=== PATIENT | female | born 1945 | race Caucasian/White ===

== ENCOUNTER 2017-09-23 07:55 | Outpatient (CLI) | payer MEDICARE, BC ==
[2017-09-23] MEDS ORDERED: Iopamidol 370 76% 100 ML VIAL ONE (10:04)
--- NOTE | 2017-09-23 10:45 | CT ---
CT ABDOMEN WITH AND WITHOUT IV CONTRAST: Date: 09/23/17 HISTORY: Epigastric pain. FINDINGS: The lung bases are clear. The liver, spleen, pancreas, adrenal glands, and right kidney are normal. T here are a few punctate calculi in the inferior pole of the left kidney. No hydroureteronephrosis is seen on either side. Left-sided parapelvic cysts are present. No calcified gallstones are noted. No free air, free fluid, or lymphadenopathy seen in the abdomen or pelvis. The small bowel loops are not abnormally dilated. There are vascular calcifications without evidence of aneurysmal dilatation of the abdominal aorta. Degenerative changes are present in the spi ne. IMPRESSION: 1. Punctate nonobstructing left renal calculi. 2. Left parapelvic renal cysts. POS: C
== END 2017-09-23 07:56 | disposition home or self-care (01) ==
LOC: CT 07:55
PROVIDERS: ATTEND Family Medicine
DX: R10.13 Epigastric pain (principal); N20.0 Calculus of kidney; Q61.02 Congenital multiple renal cysts
CPT/HCPCS: 74170

== ENCOUNTER 2018-05-05 08:50 | Outpatient (CLI) | payer MEDICARE, BC | END 2018-05-05 08:51 | disposition home or self-care (01) | LOC: BICMAMMO 08:50 | PROVIDERS: ATTEND Family Medicine | DX: Z12.31 Encounter for screening mammogram for malignant neoplasm of breast (principal) | CPT/HCPCS: 77063; 77067 ==

== ENCOUNTER 2018-10-13 05:08 | Outpatient (CLI) | payer MEDICARE, BC ==
[2018-10-13 13:42] LABS: #Basophils 0.1 thou/uL (0.0-0.2); #Eosinphils 0.4 thou/uL (0.0-0.7); #Lymphocytes 1.8 thou/uL (1.20-3.40); #Monocytes 0.8 thou/uL (0.11-0.59); #Neutrophils 6.9 thou/uL (1.40-6.50); %Basophils 0.8 % (0.0-1.0); %Eosinophils 4.3 % (0.0-10.0); %Lymphocytes 17.6 % (21.0-51.0); %Monocytes 8.3 % (0.0-10.0); %Neutrophils 68.9 % (42.0-75.0); Hemoglobin 13.4 g/dL (12.0-16.0); Mean Corpuscular HGB CONC 33.2 g/dL (32.0-36.0); Mean Corpuscular Hemoglobin 31.9 pg (27.0-31.0); Mean Corpuscular Volume 96.1 fL (78.0-98.0); Mean Platelet Volume 9.3 fL (7.4-10.4); Platelet Count 178 thou/uL (130-400); White Blood Cell (WBC) Count 9.9 thou/uL (4.8-10.8)
[2018-10-13 13:51] LABS: Prothrombin Time 13.2 SEC (12.0-14.7)
--- NOTE | 2018-10-13 13:57 | RAD ---
CHEST PA AND LATERAL: History: 73-year-old female for per operative evaluation. FINDINGS: Heart size is within normal limits. The lungs are clear. Mild biapical pleural thickening. No conflue nt pneumonia, overt edema, pleural effusion. IMPRESSION: No acute intrathoracic disease. POS: [facility]
[2018-10-13 14:07] LABS: Bilirubin Negative (Negative); Blood, Urine Negative (Negative); Clarity CLEAR (Clear); Glucose, Urine (Dipstick) Negative (Negative); Leukocyte Trace (Negative); Nitrite Negative (Negative); Protein, Urine (Dipstick) Negative (Neg-Trace); Specific Gravity, Urine 1.017 (1.002-1.036); Urobilinogen 0.2 mg/dL (0.2-1.0)
[2018-10-13 14:08] LABS: Anion Gap 11 mmol/L (10-20); BUN (Urea Nitrogen) 15 mg/dL (9.8-20.1); Calc. Creatinine Clearance 0 mL/min (70-130); Calcium 9.5 mg/dL (7.8-10.44); Carbon Dioxide 23 mmol/L (23-31); Chloride 108 mmol/L (98-107); Estimated GFR-MDRD 80; Glucose 105 mg/dL (83-110); Sodium 138 mmol/L (136-145)
[2018-10-13 14:09] LABS: Bacteria/HPF None Seen HPF (None Seen); Hyaline Casts/LPF 0-3 HYALINE CAST LPF (0-3 Hyaline); Pathc Cast-AUWi Flag 0.29 (0-2.49); RBC/HPF 0-3 HPF (0-3); Squamous Epithelial 0-3 HPF (0-3); WBC/HPF 0-3 HPF (0-3)
== END 2018-10-13 05:09 | disposition home or self-care (01) ==
LOC: LABBT 05:08
PROVIDERS: ATTEND Orthopaedic Surgery
DX: Z01.818 Encounter for other preprocedural examination (principal); M17.11 Unilateral primary osteoarthritis, right knee
CPT/HCPCS: 71046; 80048; 81001; 85025; 85610; 87081; 93005; 93010

== ENCOUNTER 2018-10-13 08:30 | Inpatient (IN) | payer MEDICARE, BC ==
[2018-10-25] MEDS ORDERED: Promethazine HCl 25 MG/ML VIAL IM PRN ×3 (06:55→10:07)
[2018-10-25] MEDS ORDERED: diphenhydrAMINE 25 MG CAP PO PRN (06:55)
[2018-10-25] MEDS ORDERED: traMADol HCl 50 MG TAB PO PRN ×3 (06:55→08:03)
[2018-10-25] MEDS ORDERED: Acetaminophen 325 MG TAB PO PRN (06:55)
[2018-10-25] MEDS ORDERED: Fentanyl 100 MCG/2 ML VIAL SLOW IVP PRN ×2 (06:55→08:04)
[2018-10-25] MEDS ORDERED: Zolpidem Tartrate 5 MG TAB PO PRN ×2 (06:55→08:03)
[2018-10-25] MEDS ORDERED: HYDROcodone/Acetaminophen 10/325 mg Tablet PO PRN ×3 (06:55→08:03)
[2018-10-25] MEDS ORDERED: Ondansetron PF 4 MG/2 ML Vial IVP PRN ×2 (06:55→08:03)
[2018-10-25] MEDS ORDERED: Vancomycin HCl 1.5 GM in Sodium Chloride 0.9% 250 ML 300 ML IVPB SCH (07:45)
[2018-10-25] MEDS ORDERED: Midazolam HCl 2 mg/2 ml Vial ONE (07:49)
[2018-10-25] MEDS ORDERED: Fentanyl 100 MCG/2 ML VIAL ONE ×4 (07:50→11:32)
[2018-10-25] MEDS ORDERED: Lidocaine 1% (PF) 30 ML VIAL ONE (07:50)
[2018-10-25] MEDS ORDERED: Sodium Chloride 0.9% 100 ML ONE (07:55)
[2018-10-25] MEDS ORDERED: CEFAZOLIN 2 GM/50 ML BAG ONE (07:55)
[2018-10-25] MEDS ORDERED: Tranexamic Acid 1,000 MG/10 ML VIAL ONE (07:55)
[2018-10-25] MEDS ORDERED: CEFAZOLIN 2 GM/50 ML-DEXTROSE 2 GM in Premix Bag 1 BAG IVPB SCH (08:00)
[2018-10-25] MEDS ORDERED: Ketorolac Tromethamine 30 MG/ML VIAL IVP PRN (08:03)
[2018-10-25] MEDS ORDERED: Ropivacaine HCl/PF 250 ML in Premix Bag 1 BAG NERVE BLCK SCH (08:03)
[2018-10-25] MEDS ORDERED: Levofloxacin 500 mg/D5W 100 ml Premix Bag ONE (08:26)
[2018-10-25] MEDS ORDERED: Aspirin 81 mg Enteric Coated Tablet PO SCH (09:00)
[2018-10-25] MEDS ORDERED: Ondansetron HCl/PF 4 MG/2 ML Vial IVP PRN (10:07)
[2018-10-25] MEDS ORDERED: Promethazine HCl 25 MG/ML VIAL SLOW IVP PRN (10:07)
[2018-10-25] MEDS ORDERED: Bupivacaine 0.25% HCL 30 ML VIAL ONE (10:14)
[2018-10-25] MEDS ORDERED: Ropivacaine 0.5% HCl/PF (150 MG/30 ML VIAL) ONE (10:14)
[2018-10-25] MEDS ORDERED: Ketorolac Tromethamine 30 MG/ML VIAL ONE (10:50)
[2018-10-25] MEDS ORDERED: Glycopyrrolate 0.2 MG/ML 5 ML SYRINGE ONE (10:52)
[2018-10-25] MEDS ORDERED: Dexamethasone 20 MG/5 ML VIAL ONE (10:52)
[2018-10-25] MEDS ORDERED: PROPOFOL 200 MG/20 ML VIAL ONE (10:52)
[2018-10-25] MEDS ORDERED: ePHEDrine/0.9% NaCl/PF SYRINGE 50 mg/10 ml ONE (10:52)
[2018-10-25] MEDS ORDERED: Ondansetron PF 4 MG/2 ML Vial ONE (10:52)
[2018-10-25] MEDS ORDERED: PHENYLEPHRINE-NS 100 MCG/ML 10 ML SYRINGE ONE (10:52)
--- NOTE | 2018-10-25 13:12 | OP ---
DATE OF PROCEDURE: 10/25/2018 PREOPERATIVE DIAGNOSIS: Degenerative joint disease, right knee. POSTOPERATIVE DIAGNOSIS: Degenerative joint disease, right knee. HOTEL STAFF MEMBER: Lawrence Joya PA-C. BLOOD LOSS: Minimal. SPECIMEN: None. DRAINS: None. COMPLICATION: None. TOURNIQUET TIME: 46 minutes. IMPLANTS USED: Kenny triathlon 4 femur, 3 tibia, 9 mm CS X3 polyethylene, and a 29 patella. PROCEDURE IN DETAIL: After informed consent was obtained in the preoperative holding area, the patient was taken to the operative suite where general anesthesia was induced. Once adequate level of general anesthesia was obtained, the patient was positioned and a well-padded tourniquet was placed around the right proximal thigh. The right lower extremity was then prepped and draped in the usual sterile fashion. Prior to exsanguination, a time-out was called and all members of the surgical team agreed upon site, surgeon, and patient. The extremity was then exsanguinated and the tourniquet was raised. A midline longitudinal incision was then made directly over the patella extending 2 fingerbreadths above the superior pole of the patella and 2 fingerbreadths inferior to the inferior patellar pole of the patella. Deeper subcutaneous layers were dissected sharply and local bleeding was controlled with Bovie electrocautery. A quad tendon longitudinal split was then made sharply and a median parapatellar arthrotomy was carried out both sharp and with Bovie electrocautery, carried down to 1 fingerbreadth medial to the tibial tubercle. The knee was then placed into flexion and the patella was everted nicely, and a copious fat pad ectomy was performed allowing for greater exposure of the tibia. The computer-assisted distal femoral fiducial was then placed and pinned firmly, and the distal femoral cutting guide was pinned firmly into place. The oscillating saw was then used to remove the appropriate amount of bone. The 4-in-1 cutting block was then placed on the distal femur and the oscillating saw was used to remove the appropriate amount of bone off the anterior, posterior, and chamfer cuts. After completion of bone cuts, the anterior cruciate ligament was resected sharply and the posterior cruciate ligament retractor was placed and the tibia was subluxed for better exposure. Partial meniscectomies were carried out, and the tibial computer-assisted fiducial was pinned, and the cutting guide was placed. Oscillating saw was then used to remove the bone, with Hohmann retractors used to take care and protect the collateral ligaments. After the tibial resection was performed, a laminar make ready worker was placed in between the freshened bone cuts. The knee placed at 90 degrees and further bilateral meniscectomies were carried out, and the curved osteotome and curettage were used to remove any excess bone spurs in the posterior compartment. The trial femoral component, tibial baseplate were placed with the appropriate polyethylene trial insert with an appropriate polyethylene spacer and patellar button. The knee was taken through full range of motion with flexion and extension from 0 to 90 degrees and patellar broach squarely in the trochlea without any squinting or subluxation noted. The knee was also stable to varus and valgus stressing at 0, 15, 45, and 90 degrees of flexion. The drawer was negative. All trial components were then removed and the keel punch was used to provide the appropriate defect in the tibia with a mallet. The freshened bone cuts were copiously irrigated with pulsatile lavage of about 1.5 L to remove all excess debris. The freshened bone cuts were then dried with suction and lap sponge. The knee was placed in flexion and retractors were placed to provide access to all bone cuts. Tobramycin-impregnated methyl methacrylate cement was then placed on the freshened bone cuts and implants which were malleted firmly into place. Curettage and [place] elevators were used to remove any excess bone cement. The knee was placed into full extension and the patellar button was placed under compression, and the cement was allowed to cure. Once completed, the components were again taken through full range of motion and copious irrigation of the knee was carried out with another liter of normal saline. All components were inspected fully with full range of motion and varus and valgus stressing. There was no laxity noted and full extension was observed clinically. Primary closure was accomplished with #2 interrupted Vicryl stitch of the arthrotomy defect. This was oversewn with a #2 running Quill barbed stitch. The gravitational platelet system was then injected into the arthrotomy prior to closure. The subcutaneous layer was then closed with a running 0 barbed Monocryl stitch and skin closure accomplished with a running subcuticular 3-0 Monocryl barbed Quill stitch and augmented with cement on the skin. Tourniquet was lowered. Good spontaneous return of distal pulses was noted clinically and a sterile dressing was applied to the incision. The procedure was terminated without any complications. The patient was awakened in the operative suite, and the patient was taken to the recovery room in stable condition. Job ID: [id number]
[2018-10-25 13:44] VITALS: BMI 32.4
--- NOTE | 2018-10-25 13:45 | RAD ---
RIGHT KNEE 2 VIEWS: Date: 10/25/18 HISTORY: Postop total knee. COMPARISON: Knee MRI from 2017. FINDINGS: Satisfactory postoperative appearance right total knee arthroplasty with patellar resurfacing. Expect ed postoperative gas and edema. IMPRESSION: Satisfactory postoperative appearance. POS: [facility]
[2018-10-25] MEDS ORDERED: Ketorolac Tromethamine 30 MG/ML VIAL IVP SCH (14:00)
[2018-10-25] MEDS: Sodium Chloride 0.9% 1,000 ML IV SCH ×3 (14:28→21:04)
[2018-10-25] MEDS: Calcium Carbonate 500 MG TAB PO SCH (14:34)
[2018-10-25] MEDS: Famotidine 20 MG TAB PO SCH (14:34)
[2018-10-25] MEDS: Ascorbic Acid 500 mg Chewable Tablet PO SCH (14:34)
[2018-10-25] MEDS: Aspirin 81 mg Enteric Coated Tablet PO SCH ×2 (14:34→21:06)
[2018-10-25] MEDS: HYDROcodone/Acetaminophen 10/325 mg Tablet PO PRN ×2 (14:49→21:05)
[2018-10-25] MEDS ORDERED: Cepastat Lozenges 1 LOZ PO PRN (15:04)
[2018-10-25] MEDS ORDERED: Eucerin (Mineral Oil/Petrolatum,White) 30 gm Jar TOP PRN (15:04)
[2018-10-25] MEDS ORDERED: Artificial Tear Sol 15 ML BOT EA EYE PRN (15:04)
[2018-10-25] MEDS ORDERED: hydrALAZINE 20 MG/ML VIAL SLOW IVP PRN (15:04)
[2018-10-25] MEDS ORDERED: Diabetic Tussin 200 MG/10 ML UDCUP PO PRN (15:04)
[2018-10-25] MEDS ORDERED: Loperamide HCl 2 MG CAP PO PRN (15:04)
[2018-10-25] MEDS ORDERED: Sodium Chloride 0.65% Nasal 44 ML BOT EA NARE PRN (15:04)
--- NOTE | 2018-10-25 15:28 | PDOC.PN ---
- Subjective Encounter Start Date: 10/25/18 Encounter Start Time: 14:30 -: old records requested/rev Patient seen and examined. No new complaints. pt had right total knee replacement consulted for medical management her pain is controlled - Objective Resuscitation Status - Order Detail: 10/25/18 15:04 Resuscitation Status Routine Resuscitation Status: FULL: Full Resuscitation MAR Reviewed: Yes Vital Signs & Weight: Vital Signs (12 hours) Temp Pulse Resp BP Pulse Ox 10/25/18 13:00 97.6 F 58 L 18 134/70 95 Weight Weight 195 lb Additional Labs: old medical record reviewed Radiology Reviewed by me: Yes (knee xray reviewed) Phys Exam - Physical Examination Constitutional: NAD HEENT: PERRLA, moist MMs, sclera anicteric Neck: no JVD, supple Respiratory: no wheezing, no rales, no rhonchi Cardiovascular: RRR, no significant murmur, no rub Gastrointestinal: soft, non-tender, no distention, positive bowel sounds Musculoskeletal: no edema, pulses present right knee with dressing, nerve block in place, brothers+ Neurological: non-focal, normal sensation, moves all 4 limbs Lymphatic: no nodes Psychiatric: normal affect, A&O x 3 Skin: no rash, normal turgor Dx/Plan (1) Status post total right knee replacement Code(s): Z96.651 - PRESENCE OF RIGHT ARTIFICIAL KNEE JOINT Status: Acute (2) GERD (gastroesophageal reflux disease) Code(s): K21.9 - GASTRO-ESOPHAGEAL REFLUX DISEASE WITHOUT ESOPHAGITIS Status: Chronic (3) Hypertension Code(s): I10 - ESSENTIAL (PRIMARY) HYPERTENSION Status: Chronic (4) Obesity (BMI 30.0-34.9) Code(s): E66.9 - OBESITY, UNSPECIFIED Status: Chronic - Plan cont current plan of care, plan discussed w/ family, PT/OT * continue aspirin for DVT prophylaxis * nerve block as per anesthesia * PT/OT as per JU protocol treatment * home medication reconciled * medication reviewed as below * symptomatic treatment * code status addressed and she is full code * pain controlled * medically stable * discussed with family bedside * will follow. Review of Systems - Review of Systems ENT: negative: Ear Pain, Ear Discharge, Nose Pain, Nose Discharge, Nose Congestion, Mouth Pain, Mouth Swelling, Throat Pain, Throat Swelling, Other Respiratory: negative: Cough, Dry, Shortness of Breath, Hemoptysis, SOB with Excertion, Pleuritic Pain, Sputum, Wheezing Cardiovascular: negative: chest pain, palpitations, orthopnea, paroxysmal nocturnal dyspnea, edema, light headedness, other Gastrointestinal: negative: Nausea, Vomiting, Abdominal Pain, Diarrhea, Constipation, Melena, Hematochezia, Other Genitourinary: negative: Dysuria, Frequency, Incontinence, Hematuria, Retention , Other Musculoskeletal: negative: Neck Pain, Shoulder Pain, Arm Pain, Back Pain, Hand Pain, Leg Pain, Foot Pain, Other Skin: negative: Rash, Lesions, Monico, Bruising, Other - Medications/Allergies Allergies/Adverse Reactions: Allergies Allergy/AdvReac Type Severity Reaction Status Date / Time cephalexin [From Keflex] Allergy extreme Verified 10/13/18 09:42 nausea codeine Allergy Nausea Verified 10/13/18 09:42 latex Allergy blisters Verified 10/13/18 09:42 Medications: Current Medications Acetaminophen (Tylenol) 650 mg PO Q4H PRN PRN Reason: Headache/Fever or Pain Hydrocodone Bitart/Acetaminophen ([place] 10/325) 1 tab PO Q4H PRN PRN Reason: Pain (1-3) Hydrocodone Bitart/Acetaminophen ([place] 10/325) 2 tab PO Q4H PRN PRN Reason: PAIN (4-6) Last Admin: 10/25/18 14:49 Dose: 2 tab Artificial Tears (Tears Renewed 15ml Bottle) 2 drop EA EYE PRN PRN PRN Reason: Dry Eyes Ascorbic Acid (Vitamin C) 1,000 mg PO DAILY [facility] Last Admin: 10/25/18 14:34 Dose: Not Given Aspirin (Ecotrin) 81 mg PO BID [facility] Last Admin: 10/25/18 14:34 Dose: Not Given Calcium Carbonate (Oscal-500) 500 mg PO DAILY [facility] Last Admin: 10/25/18 14:34 Dose: Not Given Diphenhydramine HCl (Benadryl) 25 mg PO Q6H PRN PRN Reason: Itching Famotidine (Pepcid) 20 mg PO QAM [facility] Last Admin: 10/25/18 14:34 Dose: Not Given Fentanyl (Sublimaze) 50 mcg SLOW IVP Q1H PRN PRN Reason: breakthrough pain Ferrous Gluconate (Fergon) 324 mg PO BID-[facility] Guaifenesin (Robitussin Sf) 200 mg PO Q4H PRN PRN Reason: Cough Hydralazine HCl (Apresoline) 10 mg SLOW IVP Q4H PRN PRN Reason: SBP > 180 and HR < 70 Levofloxacin 500 mg/ Device 100 mls @ 100 mls/hr IVPB 0900 [facility] Stop: 10/26/18 09:59 Sodium Chloride (Normal Saline 0.9%) 1,000 mls @ 100 mls/hr IV .Q10H [facility] Last Admin: 10/25/18 14:28 Dose: Not Given Vancomycin HCl 1 gm/ Device 200 mls @ 200 mls/hr IVPB 2100 [facility] Stop: 10/25/18 21:59 Ropivacaine 250 ml/ Device 250 mls @ 10 mls/hr NERVE BLCK INF [facility] Iron/Minerals/Multivitamins (Theragran M) 1 tab PO DAILY [facility] Ketorolac Tromethamine (Toradol) 15 mg IVP Q6H PRN PRN Reason: Moderate Pain (4-6) Stop: 10/28/18 08:04 Loperamide HCl (Imodium) 2 mg PO PRN PRN PRN Reason: Diarrhea/Loose Stools Metoprolol Succinate (Toprol Xl) 50 mg PO QAM [facility] Last Admin: 10/25/18 14:45 Dose: Not Given Mineral Oil/White Petrolatum (Eucerin Cream) 0 gm TOP BIDPRN PRN PRN Reason: Dry Skin Ondansetron HCl (Zofran) 4 mg IVP Q6H PRN PRN Reason: Nausea/Vomiting Promethazine HCl (Phenergan) 12.5 mg IM Q4H PRN PRN Reason: Nausea Senna/Docusate Sodium (Senokot S) 2 tab PO BID [facility] Sodium Chloride (Flush - Normal Saline) 10 ml IVF PRN PRN PRN Reason: Saline Flush Sodium Chloride ([place] Nasal [place] 0.65%) 0 ml EA NARE QIDPRN PRN PRN Reason: Nasal Congestion Throat Lozenges (Cepastat Lozenges) 1 anni PO Q2H PRN PRN Reason: Sore Throat Tramadol HCl (Ultram) 50 mg PO Q6H PRN PRN Reason: Mild Pain (1-3) Tramadol HCl (Ultram) 100 mg PO Q6H PRN PRN Reason: Moderate Pain 4-6 Zolpidem Tartrate (Ambien) 5 mg PO HSPRN PRN PRN Reason: Insomnia
[2018-10-25] MEDS ORDERED: Vancomycin HCl 1 GM in Premix Bag 1 BAG IVPB SCH (21:00)
[2018-10-26] MEDS: HYDROcodone/Acetaminophen 10/325 mg Tablet PO PRN ×3 (04:44→18:23)
[2018-10-26 08:08] LABS: Hemoglobin 11.6 g/dL (12.0-16.0); Mean Corpuscular HGB CONC 32.6 g/dL (32.0-36.0); Mean Corpuscular Hemoglobin 31.4 pg (27.0-31.0); Mean Corpuscular Volume 96.4 fL (78.0-98.0); Mean Platelet Volume 8.9 fL (7.4-10.4); Platelet Count 208 thou/uL (130-400); RBC Distribution Width 12.3 % (11.5-14.5); Red Blood Cell (RBC) Count 3.68 mill/uL (4.20-5.40); White Blood Cell (WBC) Count 18.6 thou/uL (4.8-10.8)
[2018-10-26] MEDS: Ferrous Gluconate 324 MG TAB PO SCH ×2 (08:30→18:27)
[2018-10-26] MEDS: Aspirin 81 mg Enteric Coated Tablet PO SCH ×2 (08:44→20:10)
[2018-10-26] MEDS: Ascorbic Acid 500 mg Chewable Tablet PO SCH (08:44)
[2018-10-26] MEDS: Calcium Carbonate 500 MG TAB PO SCH (08:45)
[2018-10-26] MEDS: Senokot S 8.6-50 MG TAB PO SCH ×2 (08:45→20:10)
[2018-10-26] MEDS: Famotidine 20 MG TAB PO SCH (08:46)
[2018-10-26] MEDS: Multivitamin W/ Minerals 1 TAB PO SCH (08:46)
--- NOTE | 2018-10-26 10:51 | PDOC.PN ---
- Subjective Encounter Start Date: 10/26/18 Encounter Start Time: 08:20 Patient seen and examined. No new complaints. No overnight events - Objective Resuscitation Status - Order Detail: 10/25/18 15:04 Resuscitation Status Routine Resuscitation Status: FULL: Full Resuscitation MAR Reviewed: Yes Vital Signs & Weight: Vital Signs (12 hours) Temp Pulse Resp BP Pulse Ox 10/26/18 08:00 97.9 F 64 20 119/61 92 L 10/26/18 04:33 98.4 F 66 20 103/47 L 94 L 10/26/18 00:16 98.2 F 64 20 112/64 95 Weight Weight 195 lb I&O: 10/25/18 10/26/18 10/27/18 06:59 06:59 06:59 Intake Total 3755 Output Total 2700 Balance 1055 Result Diagrams: 10/26/18 07:34 Phys Exam - Physical Examination Constitutional: NAD HEENT: PERRLA, moist MMs, sclera anicteric Neck: no JVD, supple Respiratory: no wheezing, no rales, no rhonchi Cardiovascular: RRR, no significant murmur, no rub Gastrointestinal: soft, non-tender, no distention, positive bowel sounds Musculoskeletal: no edema, pulses present nerve block in place Neurological: non-focal, normal sensation, moves all 4 limbs Psychiatric: normal affect, A&O x 3 Skin: no rash, normal turgor Dx/Plan (1) Status post total right knee replacement Code(s): Z96.651 - PRESENCE OF RIGHT ARTIFICIAL KNEE JOINT Status: Acute (2) GERD (gastroesophageal reflux disease) Code(s): K21.9 - GASTRO-ESOPHAGEAL REFLUX DISEASE WITHOUT ESOPHAGITIS Status: Chronic (3) Hypertension Code(s): I10 - ESSENTIAL (PRIMARY) HYPERTENSION Status: Chronic (4) Obesity (BMI 30.0-34.9) Code(s): E66.9 - OBESITY, UNSPECIFIED Status: Chronic (5) Anemia, normocytic normochromic Code(s): D64.9 - ANEMIA, UNSPECIFIED Status: Chronic - Plan * continue aspirin for DVT prophylaxis * nerve block as per anesthesia * PT/OT as per [facility] protocol treatment * medication reviewed as below * symptomatic treatment * pain controlled * medically stable.. Review of Systems - Review of Systems ENT: negative: Ear Pain, Ear Discharge, Nose Pain, Nose Discharge, Nose Congestion, Mouth Pain, Mouth Swelling, Throat Pain, Throat Swelling, Other Respiratory: negative: Cough, Dry, Shortness of Breath, Hemoptysis, SOB with Excertion, Pleuritic Pain, Sputum, Wheezing Cardiovascular: negative: chest pain, palpitations, orthopnea, paroxysmal nocturnal dyspnea, edema, light headedness, other Gastrointestinal: negative: Nausea, Vomiting, Abdominal Pain, Diarrhea, Constipation, Melena, Hematochezia, Other Genitourinary: negative: Dysuria, Frequency, Incontinence, Hematuria, Retention , Other Musculoskeletal: negative: Neck Pain, Shoulder Pain, Arm Pain, Back Pain, Hand Pain, Leg Pain, Foot Pain, Other Skin: negative: Rash, Lesions, Monico, Bruising, Other - Medications/Allergies Allergies/Adverse Reactions: Allergies Allergy/AdvReac Type Severity Reaction Status Date / Time cephalexin [From Keflex] Allergy extreme Verified 10/13/18 09:42 nausea codeine Allergy Nausea Verified 10/13/18 09:42 latex Allergy blisters Verified 10/13/18 09:42 Medications: Current Medications Acetaminophen (Tylenol) 650 mg PO Q4H PRN PRN Reason: Headache/Fever or Pain Hydrocodone Bitart/Acetaminophen ([place] 10/325) 1 tab PO Q4H PRN PRN Reason: Pain (1-3) Hydrocodone Bitart/Acetaminophen ([place] 10/325) 2 tab PO Q4H PRN PRN Reason: PAIN (4-6) Last Admin: 10/26/18 08:43 Dose: 2 tab Artificial Tears (Tears Renewed 15ml Bottle) 2 drop EA EYE PRN PRN PRN Reason: Dry Eyes Ascorbic Acid (Vitamin C) 1,000 mg PO DAILY [facility] Last Admin: 10/26/18 08:44 Dose: 1,000 mg Aspirin (Ecotrin) 81 mg PO BID [facility] Last Admin: 10/26/18 08:44 Dose: 81 mg Calcium Carbonate (Oscal-500) 500 mg PO DAILY [facility] Last Admin: 10/26/18 08:45 Dose: 500 mg Diphenhydramine HCl (Benadryl) 25 mg PO Q6H PRN PRN Reason: Itching Famotidine (Pepcid) 20 mg PO QAM [facility] Last Admin: 10/26/18 08:46 Dose: 20 mg Fentanyl (Sublimaze) 50 mcg SLOW IVP Q1H PRN PRN Reason: breakthrough pain Ferrous Gluconate (Fergon) 324 mg PO BID-[facility] Last Admin: 10/26/18 08:30 Dose: 324 mg Guaifenesin (Robitussin Sf) 200 mg PO Q4H PRN PRN Reason: Cough Hydralazine HCl (Apresoline) 10 mg SLOW IVP Q4H PRN PRN Reason: SBP > 180 and HR < 70 Sodium Chloride (Normal Saline 0.9%) 1,000 mls @ 100 mls/hr IV .Q10H [facility] Last Admin: 10/25/18 21:04 Dose: 1,000 mls Ropivacaine 250 ml/ Device 250 mls @ 10 mls/hr NERVE BLCK INF [facility] Iron/Minerals/Multivitamins (Theragran M) 1 tab PO DAILY [facility] Last Admin: 10/26/18 08:46 Dose: 1 tab Ketorolac Tromethamine (Toradol) 15 mg IVP Q6H PRN PRN Reason: Moderate Pain (4-6) Stop: 10/28/18 08:04 Loperamide HCl (Imodium) 2 mg PO PRN PRN PRN Reason: Diarrhea/Loose Stools Metoprolol Succinate (Toprol Xl) [facility] [place] Last Admin: 10/26/18 08:45 Dose: 50 mg Mineral Oil/White Petrolatum (Eucerin Cream) 0 gm TOP BIDPRN PRN PRN Reason: Dry Skin Ondansetron HCl (Zofran) 4 mg IVP Q6H PRN PRN Reason: Nausea/Vomiting Last Admin: 10/26/18 10:44 Dose: 4 mg Promethazine HCl (Phenergan) 12.5 mg IM Q4H PRN PRN Reason: Nausea Senna/Docusate Sodium (Senokot S) 2 tab PO BID [facility] Last Admin: 10/26/18 08:45 Dose: 2 tab Sodium Chloride (Flush - Normal Saline) 10 ml IVF PRN PRN PRN Reason: Saline Flush Sodium Chloride ([place] Nasal [place] 0.65%) 0 ml EA NARE QIDPRN PRN PRN Reason: Nasal Congestion Throat Lozenges (Cepastat Lozenges) 1 anni PO Q2H PRN PRN Reason: Sore Throat Tramadol HCl (Ultram) 50 mg PO Q6H PRN PRN Reason: Mild Pain (1-3) Tramadol HCl (Ultram) 100 mg PO Q6H PRN PRN Reason: Moderate Pain 4-6 Zolpidem Tartrate (Ambien) 5 mg PO HSPRN PRN PRN Reason: Insomnia
[2018-10-26] MEDS: Sodium Chloride 0.9% 1,000 ML IV SCH ×2 (15:19→20:11)
[2018-10-27] MEDS: HYDROcodone/Acetaminophen 10/325 mg Tablet PO PRN ×4 (02:31→17:26)
[2018-10-27] MEDS: Famotidine 20 MG TAB PO SCH (06:37)
[2018-10-27 06:58] LABS: Hemoglobin 10.9 g/dL (12.0-16.0); Mean Corpuscular HGB CONC 32.2 g/dL (32.0-36.0); Mean Corpuscular Hemoglobin 31.5 pg (27.0-31.0); Mean Corpuscular Volume 97.6 fL (78.0-98.0); Mean Platelet Volume 9.2 fL (7.4-10.4); Platelet Count 194 thou/uL (130-400); RBC Distribution Width 12.6 % (11.5-14.5); Red Blood Cell (RBC) Count 3.46 mill/uL (4.20-5.40); White Blood Cell (WBC) Count 15.4 thou/uL (4.8-10.8)
[2018-10-27] MEDS: Ascorbic Acid 500 mg Chewable Tablet PO SCH (08:43)
[2018-10-27] MEDS: Ferrous Gluconate 324 MG TAB PO SCH ×2 (08:43→16:16)
[2018-10-27] MEDS: Senokot S 8.6-50 MG TAB PO SCH (08:44)
[2018-10-27] MEDS: Calcium Carbonate 500 MG TAB PO SCH (08:44)
[2018-10-27] MEDS: Aspirin 81 mg Enteric Coated Tablet PO SCH (08:44)
[2018-10-27] MEDS: Multivitamin W/ Minerals 1 TAB PO SCH (08:44)
[2018-10-27] MEDS ORDERED: Ondansetron ODT 4 MG TAB PO PRN (09:16)
[2018-10-27] MEDS: Sodium Chloride 0.9% 1,000 ML IV SCH (09:16)
--- NOTE | 2018-10-27 09:45 | PDOC.PN ---
- Subjective Encounter Start Date: 10/27/18 Encounter Start Time: 08:10 Patient seen and examined. No new complaints. No overnight events - Objective Resuscitation Status - Order Detail: 10/25/18 15:04 Resuscitation Status Routine Resuscitation Status: FULL: Full Resuscitation MAR Reviewed: Yes Vital Signs & Weight: Vital Signs (12 hours) Temp Pulse Resp BP Pulse Ox 10/27/18 08:00 94 L 10/27/18 07:46 97.8 F 58 L 17 124/52 L 94 L 10/27/18 05:48 98.6 F 64 18 123/66 92 L 10/27/18 01:09 98.4 F 65 18 113/53 L 94 L Weight Weight 195 lb I&O: 10/26/18 10/27/18 10/28/18 06:59 06:59 06:59 Intake Total 3755 2160 Output Total 2700 2000 Balance 1055 160 Result Diagrams: 10/27/18 06:30 Phys Exam - Physical Examination Constitutional: NAD HEENT: PERRLA, moist MMs, sclera anicteric Neck: no JVD, supple Respiratory: no wheezing, no rales, no rhonchi Cardiovascular: RRR, no significant murmur, no rub Gastrointestinal: soft, non-tender, no distention, positive bowel sounds Musculoskeletal: no edema, pulses present Neurological: non-focal, normal sensation Lymphatic: no nodes Psychiatric: normal affect Skin: no rash, normal turgor Dx/Plan (1) Status post total right knee replacement Code(s): Z96.651 - PRESENCE OF RIGHT ARTIFICIAL KNEE JOINT Status: Acute (2) GERD (gastroesophageal reflux disease) Code(s): K21.9 - GASTRO-ESOPHAGEAL REFLUX DISEASE WITHOUT ESOPHAGITIS Status: Chronic (3) Hypertension Code(s): I10 - ESSENTIAL (PRIMARY) HYPERTENSION Status: Chronic (4) Obesity (BMI 30.0-34.9) Code(s): E66.9 - OBESITY, UNSPECIFIED Status: Chronic - Plan cont current plan of care, PT/OT * medication reviewed as below * symptomatic treatment * medically stable * may need placement. Review of Systems - Review of Systems ENT: negative: Ear Pain, Ear Discharge, Nose Pain, Nose Discharge, Nose Congestion, Mouth Pain, Mouth Swelling, Throat Pain, Throat Swelling, Other Respiratory: negative: Cough, Dry, Shortness of Breath, Hemoptysis, SOB with Excertion, Pleuritic Pain, Sputum, Wheezing Cardiovascular: negative: chest pain, palpitations, orthopnea, paroxysmal nocturnal dyspnea, edema, light headedness, other Gastrointestinal: negative: Nausea, Vomiting, Abdominal Pain, Diarrhea, Constipation, Melena, Hematochezia, Other Genitourinary: negative: Dysuria, Frequency, Incontinence, Hematuria, Retention , Other Musculoskeletal: negative: Neck Pain, Shoulder Pain, Arm Pain, Back Pain, Hand Pain, Leg Pain, Foot Pain, Other Skin: negative: Rash, Lesions, Monico, Bruising, Other - Medications/Allergies Allergies/Adverse Reactions: Allergies Allergy/AdvReac Type Severity Reaction Status Date / Time cephalexin [From Keflex] Allergy extreme Verified 10/13/18 09:42 nausea codeine Allergy Nausea Verified 10/13/18 09:42 latex Allergy blisters Verified 10/13/18 09:42 Medications: Current Medications Acetaminophen (Tylenol) 650 mg PO Q4H PRN PRN Reason: Headache/Fever or Pain Hydrocodone Bitart/Acetaminophen ([place] 10/325) 1 tab PO Q4H PRN PRN Reason: Pain (1-3) Hydrocodone Bitart/Acetaminophen ([place] 10/325) 2 tab PO Q4H PRN PRN Reason: PAIN (4-6) Last Admin: 10/27/18 06:32 Dose: 2 tab Artificial Tears (Tears Renewed 15ml Bottle) 2 drop EA EYE PRN PRN PRN Reason: Dry Eyes Ascorbic Acid (Vitamin C) 1,000 mg PO DAILY [facility] Last Admin: 10/27/18 08:43 Dose: 1,000 mg Aspirin (Ecotrin) 81 mg PO BID [facility] Last Admin: 10/27/18 08:44 Dose: 81 mg Calcium Carbonate (Oscal-500) 500 mg PO DAILY [facility] Last Admin: 10/27/18 08:44 Dose: 500 mg Diphenhydramine HCl (Benadryl) 25 mg PO Q6H PRN PRN Reason: Itching Famotidine (Pepcid) 20 mg PO QAM [facility] Last Admin: 10/27/18 06:37 Dose: 20 mg Fentanyl (Sublimaze) 50 mcg SLOW IVP Q1H PRN PRN Reason: breakthrough pain Ferrous Gluconate (Fergon) 324 mg PO BID-[facility] Last Admin: 10/27/18 08:43 Dose: Not Given Guaifenesin (Robitussin Sf) 200 mg PO Q4H PRN PRN Reason: Cough Hydralazine HCl (Apresoline) 10 mg SLOW IVP Q4H PRN PRN Reason: SBP > 180 and HR < 70 Sodium Chloride (Normal Saline 0.9%) 1,000 mls @ 100 mls/hr IV .Q10H [facility] Last Admin: 10/27/18 09:16 Dose: Not Given Ropivacaine 250 ml/ Device 250 mls @ 10 mls/hr NERVE BLCK INF [facility] Last Admin: 10/26/18 14:14 Dose: 250 mls Iron/Minerals/Multivitamins (Theragran M) 1 tab PO DAILY [facility] Last Admin: 10/27/18 08:44 Dose: 1 tab Ketorolac Tromethamine (Toradol) 15 mg IVP Q6H PRN PRN Reason: Moderate Pain (4-6) Stop: 10/28/18 08:04 Last Admin: 10/26/18 11:45 Dose: 15 mg Loperamide HCl (Imodium) 2 mg PO PRN PRN PRN Reason: Diarrhea/Loose Stools Metoprolol Succinate (Toprol Xl) 50 mg PO QAM [facility] Last Admin: 10/27/18 08:44 Dose: 50 mg Mineral Oil/White Petrolatum (Eucerin Cream) 0 gm TOP BIDPRN PRN PRN Reason: Dry Skin Ondansetron HCl (Zofran) 4 mg IVP Q6H PRN PRN Reason: Nausea/Vomiting Last Admin: 10/26/18 10:44 Dose: 4 mg Ondansetron HCl (Zofran Odt) 4 mg PO Q6H PRN PRN Reason: Nausea/Vomiting Promethazine HCl (Phenergan) 12.5 mg IM Q4H PRN PRN Reason: Nausea Senna/Docusate Sodium (Senokot S) 2 tab PO BID [facility] Last Admin: 10/27/18 08:44 Dose: 2 tab Sodium Chloride (Flush - Normal Saline) 10 ml IVF PRN PRN PRN Reason: Saline Flush Sodium Chloride ([place] Nasal [place] 0.65%) 0 ml EA NARE QIDPRN PRN PRN Reason: Nasal Congestion Throat Lozenges (Cepastat Lozenges) 1 anni PO Q2H PRN PRN Reason: Sore Throat Tramadol HCl (Ultram) 50 mg PO Q6H PRN PRN Reason: Mild Pain (1-3) Tramadol HCl (Ultram) 100 mg PO Q6H PRN PRN Reason: Moderate Pain 4-6 Zolpidem Tartrate (Ambien) 5 mg PO HSPRN PRN PRN Reason: Insomnia
[2018-10-27 15:30] VITALS: TEMP 97.9
[2018-10-27 15:31] VITALS: BP 135/71
[2018-10-27] MEDS ORDERED: Bisacodyl 10 MG SUPP PR PRN (15:40)
[2018-10-27] MEDS ORDERED: Bisacodyl 5 MG TAB PO SCH (15:45)
[2018-10-27] MEDS ORDERED: Mag-Al 1200 mg/1200 mg/30 ML UDCUP PO SCH (15:45)
--- NOTE | 2018-10-28 10:07 | DIS ---
DATE OF ADMISSION: 10/25/2018 DATE OF DISCHARGE: 10/27/2018 PRIMARY CARE PHYSICIAN: Kyara Joseph MD. DISCHARGE DISPOSITION: Rehab. PRIMARY DISCHARGE DIAGNOSES: Status post right total knee replacement. SECONDARY DISCHARGE DIAGNOSES: 1. Anemia, normocytic. 2. Gastroesophageal reflux disease. 3. Hypertension. 4. Obesity with BMI of 32. PRIMARY PROCEDURE/OPERATION: Right total knee replacement. RADIOLOGICAL INVESTIGATION: Knee x-ray. SIGNIFICANT LABORATORY DATA: WBC 15.4, hemoglobin 10.9, and platelet 194. DISCHARGE MEDICATIONS: 1. Aspirin 81 mg p.o. daily. 2. Pepcid 20 mg daily. 3. Toprol-XL 50 mg p.o. daily. 4. Vitamin C 1000 mg p.o. daily. CONTRAINDICATION: None. CODE STATUS: Full code. INPATIENT SENIOR BUSINESS INTELLIGENCE ANALYST: Dr. Craft was primary, [facility] Team was consulted for medical management. TEST RESULTS PENDING ON DISCHARGE: None. ALLERGIES: KEFLEX, CODEINE, AND LATEX. DISCHARGE PLAN: Posthospital, the patient is discharged to rehab. Subsequently, the patient will follow up with Dr. Craft on November 16, 2018 at 8:45 a.m. The patient will make appointment with primary care physician in one week. HOSPITAL COURSE: A 73-year-old female, who was admitted electively for right total knee replacement, which was done by Dr. Craft and subsequently a [facility] [place] Team was consulted for medical comanagement. The patient's all medical problems remained stable. We continued all her home medication. This patient was needing rehab and with help of bottle caser, we arranged rehab. At rehab, the patient will need DVT prophylaxis and PT and OT as per protocol and she will follow up with primary care physician after discharge from rehab. The patient is seen and examined on the day of discharge. Please see my progress note for further detail. Job ID: [id number]
== END 2018-10-27 17:42 | disposition home or self-care (01) | DRG 470 ==
LOC: SURG A 10-25 06:35 → EDSTATUS 10-25 08:30 → SJJU 10-25 13:11
PROVIDERS: ADMIT Orthopaedic Surgery; ATTEND Orthopaedic Surgery
PROC: 0SRC0J9 Replacement of Right Knee Joint with Synthetic Substitute, Cemented, Open Approach (ICD-10-PCS; principal; 2018-10-25)
DX: M17.11 Unilateral primary osteoarthritis, right knee (principal); K21.9 Gastro-esophageal reflux disease without esophagitis; I10 Essential (primary) hypertension; E66.9 Obesity, unspecified; D64.9 Anemia, unspecified; Z68.30 Body mass index [BMI] 30.0-30.9, adult; Z88.1 Allergy status to other antibiotic agents; Z88.5 Allergy status to narcotic agent; Z91.040 Latex allergy status
CPT/HCPCS: 36415; 85027; C1713; C1776; J0131; J1100; J1885; J1956; J2001; J2250; J2405; J2550; J2704; J2795; J3010; J3370; J7050; Q0162; S0020

== ENCOUNTER 2018-10-21 10:44 | Outpatient (CLI) | payer MEDICARE, BC | END 2018-10-21 10:45 | disposition home or self-care (01) | LOC: LABBT 10:44 | PROVIDERS: ATTEND Orthopaedic Surgery | DX: Z01.812 Encounter for preprocedural laboratory examination (principal); M17.11 Unilateral primary osteoarthritis, right knee | CPT/HCPCS: 86850; 86900; 86901 ==

== ENCOUNTER 2019-11-22 10:55 | Outpatient (CLI) | payer MEDICARE, BC ==
--- NOTE | 2019-11-22 11:24 | MMO ---
Bilateral MAMMO Bilat Screen [facility]. CLINICAL HISTORY: Patient is 74 years old and is seen for screening. The patient has no family history of breast cancer. The patient has no personal history of cancer. VIEWS: The views performed were: bilateral craniocaudal with tomosynthesis and bilateral mediolateral oblique with tomosynthesis. FILMS COMPARED: The present examination has been compared to prior imaging studies performed at [facility] on 07/12/2009, 11/20/2016 and 05/05/2018, and at [facility] on 08/31/2002. This study has been interpreted with the assistance of computer-aided detection. MAMMOGRAM FINDINGS: There are scattered fibroglandular densities. There are no suspicious masses, suspicious calcifications, or new areas of architectural distortion. IMPRESSION: THERE IS NO MAMMOGRAPHIC EVIDENCE OF MALIGNANCY. A ROUTINE FOLLOW-UP MAMMOGRAM IN 1 YEAR IS RECOMMENDED. THE RESULTS OF THIS EXAM WERE SENT TO THE PATIENT. ACR BI-RADS Category 1 - Negative MAMMOGRAPHY NOTE: 1. A negative mammogram report should not delay a biopsy if a dominant of clinically suspicious mass is present. 2. Approximately 10% to 15% of breast cancers are not detected by mammography. 3. Adenosis and dense breasts may obscure an underlying neoplasm. Reported by: JUAN CARLOS JUAREZ MD Electonically Signed: [id number]
== END 2019-11-22 10:56 | disposition home or self-care (01) ==
LOC: BICMAMMO 10:55
PROVIDERS: ATTEND Family Medicine
DX: Z12.31 Encounter for screening mammogram for malignant neoplasm of breast (principal)
CPT/HCPCS: 77063; 77067

== ENCOUNTER 2020-11-25 09:57 | Outpatient (CLI) | payer MEDICARE, BC ==
--- NOTE | 2020-11-25 10:42 | MMO ---
Bilateral MAMMO Bilat Screen [facility]. CLINICAL HISTORY: Patient is 75 years old and is seen for screening. The patient has no family history of breast cancer. The patient has no personal history of cancer. VIEWS: The views performed were: bilateral craniocaudal with tomosynthesis and bilateral mediolateral oblique with tomosynthesis. FILMS COMPARED: The present examination has been compared to prior imaging studies performed at [facility] on 07/12/2009, 11/20/2016, 05/05/2018 and 11/22/2019. This study has been interpreted with the assistance of computer-aided detection. MAMMOGRAM FINDINGS: There are scattered fibroglandular densities. There are no suspicious masses, suspicious calcifications, or new areas of architectural distortion. IMPRESSION: THERE IS NO MAMMOGRAPHIC EVIDENCE OF MALIGNANCY. A ROUTINE FOLLOW-UP MAMMOGRAM IN 1 YEAR IS RECOMMENDED. THE RESULTS OF THIS EXAM WERE SENT TO THE PATIENT. ACR BI-RADS Category 1 - Negative MAMMOGRAPHY NOTE: 1. A negative mammogram report should not delay a biopsy if a dominant of clinically suspicious mass is present. 2. Approximately 10% to 15% of breast cancers are not detected by mammography. 3. Adenosis and dense breasts may obscure an underlying neoplasm. Reported by: JUAN CARLOS JUAREZ MD Electonically Signed: [id number]
== END 2020-11-25 09:58 | disposition home or self-care (01) ==
LOC: BICMAMMO 09:57
PROVIDERS: ATTEND Family Medicine
DX: Z12.31 Encounter for screening mammogram for malignant neoplasm of breast (principal)
CPT/HCPCS: 77063; 77067

== ENCOUNTER 2021-01-15 09:47 | Emergency (ER) | payer MEDICARE, BC ==
[2021-01-15] MEDS ORDERED: Morphine 4 MG/ML VIAL ONE ×2 (11:01→15:15)
[2021-01-15] MEDS ORDERED: Ondansetron PF 4 MG/2 ML Vial ONE (11:01)
== END 2021-01-15 15:45 | disposition home or self-care (01) ==
LOC: ERS 09:47
DX: S32.592A Other specified fracture of left pubis, initial encounter for closed fracture (principal); S32.591A Other specified fracture of right pubis, initial encounter for closed fracture; S32.10XA Unspecified fracture of sacrum, initial encounter for closed fracture; E78.5 Hyperlipidemia, unspecified; I10 Essential (primary) hypertension; W19.XXXA Unspecified fall, initial encounter
CPT/HCPCS: 72170; 93970; 96374; 96375; 96376; J2270; J2405

== ENCOUNTER 2021-06-04 10:00 | Outpatient (CLI) | payer MEDICARE, BC ==
[2021-06-04 11:22] LABS: #Basophils 0.1 10x3/uL (0.0-0.2); #Eosinphils 0.2 10x3/uL (0.0-0.5); #Monocytes 0.9 10x3/uL (0.0-1.1); #Neutrophils 7.3 10x3/uL (1.5-8.4); %Basophils 0.5 % (0.0-2.0); %Eosinophils 2.1 % (0.0-6.0); %Lymphocytes 22.5 % (18.0-47.0); %Monocytes 8.1 % (0.0-10.0); %Neutrophils 65.9 % (40.0-75.0); Hemoglobin 13.1 g/dL (12.0-15.5); Mean Corpuscular HGB CONC 32.5 g/dL (32.0-36.0); Mean Corpuscular Hemoglobin 31.6 pg (27.0-33.0); Mean Corpuscular Volume 97.3 fl (81.6-98.3); Mean Platelet Volume 11.4 fl (7.4-10.4); Platelet Count 193 10x3/uL (150-450); RBC Distribution Width 14.6 % (11.5-14.5); Red Blood Cell (RBC) Count 4.14 10x6/uL (3.90-5.03); White Blood Cell (WBC) Count 11.1 10x3/uL (3.5-10.5)
[2021-06-04 11:41] LABS: Anion Gap 14 mmol/L (10-20); BUN (Urea Nitrogen) 19 mg/dL (9.8-20.1); Calc. Creatinine Clearance 0 mL/min (70-130); Calcium 9.4 mg/dL (7.8-10.44); Carbon Dioxide 23 mmol/L (23-31); Chloride 109 mmol/L (98-107); Glucose 111 mg/dL (83-110); Sodium 142 mmol/L (136-145)
[2021-06-04 11:44] LABS: INR-International Normal Ratio 0.9; Prothrombin Time 10.4 sec (9.5-12.1)
[2021-06-04 12:30] LABS: Bilirubin Neg (Negative); Blood, Urine Negative (Negative); Clarity Clear (Clear); Glucose, Urine (Dipstick) Normal (Negative); Ketone, Urine Negative (Negative); Leukocyte 25 (Negative); Nitrite Negative (Negative); Protein, Urine (Dipstick) 15 mg/dl (Neg-Trace); Urobilinogen Normal mg/dL (Less than 2)
[2021-06-04 12:43] LABS: Bacteria/HPF Rare-Few HPF (None Seen); RBC/HPF 0-3 HPF (0-3); Squamous Epithelial 0-3 HPF (0-3)
[2021-06-05 00:28] LABS: SARS-CoV-2 PCR by NAA Not Detected (NotDetected)
== END 2021-06-04 10:01 | disposition home or self-care (01) ==
LOC: LABBT 10:00
PROVIDERS: ATTEND Orthopaedic Surgery
DX: Z01.818 Encounter for other preprocedural examination (principal); Z20.822 Contact with and (suspected) exposure to COVID-19
CPT/HCPCS: 80048; 81001; 85025; 85610; 87081; 93005; U0003; U0005; 93010

== ENCOUNTER 2021-12-15 09:08 | Outpatient (CLI) | payer MEDICARE, BC | END 2021-12-15 09:09 | disposition home or self-care (01) | LOC: BICMAMMO 09:08 | PROVIDERS: ATTEND Family Medicine | DX: Z12.31 Encounter for screening mammogram for malignant neoplasm of breast (principal); M81.0 Age-related osteoporosis without current pathological fracture | CPT/HCPCS: 77063; 77067; 77080 ==

== ENCOUNTER 2023-01-15 14:14 | Outpatient (CLI) | payer MEDICARE, BC | END 2023-01-15 14:15 | disposition home or self-care (01) | LOC: BICMAMMO 14:14 | PROVIDERS: ATTEND Family Medicine | DX: Z12.31 Encounter for screening mammogram for malignant neoplasm of breast (principal) | CPT/HCPCS: 77063; 77067 ==

== ENCOUNTER 2023-02-03 15:01 | Outpatient (CLI) | payer MEDICARE, BC | END 2023-02-03 15:02 | disposition home or self-care (01) | LOC: BICMAMMO 15:01 | PROVIDERS: ATTEND Internal Medicine Rheumatology | DX: M54.50 Low back pain, unspecified (principal); M81.0 Age-related osteoporosis without current pathological fracture; R07.81 Pleurodynia; M85.851 Other specified disorders of bone density and structure, right thigh; M85.852 Other specified disorders of bone density and structure, left thigh; M85.88 Other specified disorders of bone density and structure, other site; S22.41XD Multiple fractures of ribs, right side, subsequent encounter for fracture with routine healing | CPT/HCPCS: 71046; 71110; 77080 ==

== ENCOUNTER 2023-02-18 11:06 | Outpatient (CLI) | payer MEDICARE, BC | END 2023-02-18 11:07 | disposition home or self-care (01) | LOC: BICRAD 11:06 | PROVIDERS: ATTEND Internal Medicine Rheumatology | DX: M54.50 Low back pain, unspecified (principal); R22.42 Localized swelling, mass and lump, left lower limb; M25.552 Pain in left hip; M47.816 Spondylosis without myelopathy or radiculopathy, lumbar region; M47.818 Spondylosis without myelopathy or radiculopathy, sacral and sacrococcygeal region; M16.12 Unilateral primary osteoarthritis, left hip; M19.072 Primary osteoarthritis, left ankle and foot | CPT/HCPCS: 72110 ==

== ENCOUNTER 2024-03-28 09:49 | Outpatient (CLI) | payer MEDICARE, BC | END 2024-03-28 09:50 | disposition home or self-care (01) | LOC: BICMAMMO 09:49 | PROVIDERS: ATTEND Internal Medicine Rheumatology | DX: M81.0 Age-related osteoporosis without current pathological fracture (principal); M85.88 Other specified disorders of bone density and structure, other site; M06.4 Inflammatory polyarthropathy; M65.9 Synovitis and tenosynovitis, unspecified; Z79.899 Other long term (current) drug therapy | CPT/HCPCS: 77080 ==